=== PATIENT | female | born 1955 | race Caucasian/White ===

== ENCOUNTER 2017-10-16 08:00 | Outpatient (CLI) | payer MEDICAID | END 2017-10-16 08:01 | disposition home or self-care (01) | LOC: LAB.R 08:00 | PROVIDERS: ATTEND Family Medicine | DX: L72.3 Sebaceous cyst (principal) | CPT/HCPCS: 87070; 87205 ==

== ENCOUNTER 2021-04-05 09:14 | Emergency (ER) | payer MEDICARE ==
[2021-04-05 09:20] VITALS: BP 143/78
--- NOTE | 2021-04-05 09:29 | ED Physician Documentation ---
PD HPI SKIN - Stated complaint Stated Complaint: RASH/RIB PX - Chief complaint Chief Complaint: Wound - History obtained from History obtained from: Patient - History of Present Illness Timing - onset: How many days ago (6) Timing - duration: Days (6 days ago started with pain right back around to right chest, with rash starting anterolaterally 2 days ago. Has increased pain in area. She presumes shingles. Has significant pain and intolerable now.) Timing - details: Gradual onset Location: Chest (right chest around to thoracic back right side.) Quality / character: Painful, Discolored, Vesicular, Swelling. No: Draining Associated symptoms: No: Fever, Myalgias, N/V/D Contributing factors: No: Exposed to Poison lacy/oak, Recent illness Similar symptoms before: Has not had sx before Recently seen: Not recently seen Review of Systems Constitutional: denies: Fever, Chills Nose: denies: Rhinorrhea / runny nose, Congestion Throat: denies: Sore throat Respiratory: denies: Cough GI: denies: Nausea, Vomiting, Diarrhea Skin: reports: Rash Neurologic: denies: Generalized weakness, Focal weakness PD PAST MEDICAL HISTORY - Past Medical History Past Medical History: No Endocrine/Autoimmune: None - Past Surgical History Past Surgical History: Yes /[employer]: Mastectomy HEENT: Tonsil/Adenoidectomy - Present Medications Home Medications: Ambulatory Orders Medication Instructions Recorded Confirmed Amitriptyline [Elavil] 25 mg PO HS 30 Days #30 tablet 04/05/21 Docusate Sodium 100Mg Capsule 100 mg PO DAILY #20 cap 04/05/21 [Colace 100Mg Capsule] Oxycodone HCl/Acetaminophen 1 each PO Q6H PRN #20 tablet 04/05/21 [Percocet 5-325 mg Tablet] Valacyclovir HCl [Valtrex] 1,000 mg PO TID #18 tablet 04/05/21 dexAMETHasone [Decadron] 4 mg PO DAILY 6 Days #6 tablet 04/05/21 - Allergies Allergies/Adverse Reactions: Allergies Allergy/AdvReac Type Severity Reaction Status Date / Time No Known Drug Allergies Allergy Verified 04/05/21 09:20 - Social History Does the pt smoke?: Yes Smoking Status: Current every day smoker Does the pt drink ETOH?: Yes Does the pt have substance abuse?: No - Immunizations Immunizations are current?: Yes PD ED PE NORMAL - Vitals Vital signs reviewed: Yes - General General: Alert and oriented X 3, Well developed/nourished - Neck Neck: Supple, no meningeal sign, No adenopathy - Cardiac Cardiac: RRR, No murmur - Respiratory Respiratory: Clear bilaterally - Abdomen Abdomen: Soft, Non tender - Derm Derm: Normal color, Warm and dry, Other (right side thoracic back around to chest has swatch of patchy red blistered rash c/w shingles at T6 level. No purulence of lesions, nor redness outside of the dermatomal path. ) Results - Vitals Vitals: Vital Signs - 24 hr 04/05/21 09:18 Temperature 35.3 C L Heart Rate 114 H Respiratory 16 Rate Blood Pressure 143/78 H O2 Saturation 98 Oxygen O2 Source Room air PD MEDICAL DECISION MAKING - ED course Complexity details: considered differential (shingles rash clinically without apparent secondary infection. ), d/w patient Departure - Departure Disposition: 01 Home, Self Care Clinical Impression: Shingles rash Qualifiers: Herpes zoster complications: without complications Qualified Code(s): B02.9 - Zoster without complications Condition: Stable Record reviewed to determine appropriate education?: Yes Instructions: ED Shingles Follow-Up: Emily Mccray DO [Primary Care Provider] - Prescriptions: Docusate Sodium 100Mg Capsule [Colace 100Mg Capsule] 100 mg PO DAILY #20 cap dexAMETHasone [Decadron] 4 mg PO DAILY 6 Days #6 tablet Amitriptyline [Elavil] 25 mg PO HS 30 Days #30 tablet Oxycodone HCl/Acetaminophen [Percocet 5-325 mg Tablet] 1 each PO Q6H PRN #20 tablet PRN Reason: pain Valacyclovir HCl [Valtrex] 1,000 mg PO TID #18 tablet Comments: This looks and acts like shingles. We will treat it with valacyclovir 3 times a day for 6 days. Also Decadron steroid for inflammation of the nerve for 6 days as well. Amitriptyline tries to reduce the nerve irritation and take this daily for 3 to 4 weeks as the nerve inflammation can last that long. Watch for signs of secondary infection, increasing redness, purulent drainage, any rash extending beyond that stripe on your chest. Otherwise the blistering rash will weep some clear fluid to yellowish and should dry up after several days to a week. Add Tylenol or Percocet if needed for pain. Use docusate stool softener to reduce chance of constipation. Stay well-hydrated. Follow-up with your primary care later this week or early next week, call for an appointment. Discharge Date/Time: 04/05/21 10:05
[2021-04-05] MEDS ORDERED: DEXAMETHASONE 10 MG/ML VIAL PO STA (09:47)
[2021-04-05] MEDS ORDERED: CHERRY SYRUP 10 ML UDC PO ONE (09:47)
[2021-04-05] MEDS ORDERED: ACETAMINOPHEN 325 MG TABLET PO STA (09:47)
[2021-04-05] MEDS ORDERED: ACYCLOVIR 200 MG CAPSULE PO STA (09:47)
== END 2021-04-05 10:05 | disposition home or self-care (01) ==
LOC: ED 09:14
DX: B02.9 Zoster without complications (principal); F17.200 Nicotine dependence, unspecified, uncomplicated
CPT/HCPCS: 99282; 99284; A9270